=== PATIENT | male | born 1955 | race Caucasian/White ===

== ENCOUNTER → 2024-01-26 06:39 | Day surgery (SDC) | payer MEDICARE, BC, SELFPAY | LOC: GI 06:39 | PROVIDERS: ATTENDING PHYSICIAN Specialist | DX: Z12.11 Encounter for screening for malignant neoplasm of colon (principal); D12.0 Benign neoplasm of cecum; D12.3 Benign neoplasm of transverse colon; Z86.010 Personal history of colon polyps | CPT/HCPCS: 45380; 88305 ==

== ENCOUNTER → 2024-02-23 06:40 | Outpatient (REF) | payer MEDICARE, BC, SELFPAY | LOC: PAVMRI 06:40 | PROVIDERS: ATTENDING PHYSICIAN Internal Medicine Obesity Medicine; FAMILY PHYSICIAN Physician Assistant | DX: M25.571 Pain in right ankle and joints of right foot (principal); M76.821 Posterior tibial tendinitis, right leg | CPT/HCPCS: 73721 ==